=== PATIENT | female | born 1995 ===

== ENCOUNTER 2017-05-07 01:51 | Emergency (ER) | payer OTHER ==
[2017-05-07 01:58] VITALS: BP 103/56
[2017-05-07] MEDS ORDERED: IPRATROPIUM/ALBUTEROL 0.5-2.5 MG/3 ML AMPUL NEB ONE ×2 (02:06→02:11)
[2017-05-07] MEDS ORDERED: PREDNISONE 20 MG TABLET PO ONE (02:11)
--- NOTE | 2017-05-07 02:13 | ER Document Report ---
ED General - General Chief Complaint: Asthma Exacerbation Stated Complaint: DIFFICUTLY BREATHING Time Seen by Provider: 05/07/17 02:05 Notes: Patient is a pleasant 22-year-old female who presents with complaint of difficulty breathing. She does have history of asthma. She has never needed to be admitted for asthma. She does smoke. She does not drink alcohol on a regular basis. She says that she has had a cough and congestion for last several days. Tonight around 1 she started having difficulty breathing. It became much worse. She is out of her inhaler and therefore came to the ER. She says she only uses albuterol inhaler. She does not use any type of maintenance inhalers. She has no other complaints at this time. TRAVEL OUTSIDE OF THE [place] IN LAST 30 DAYS: No - Related Data Allergies/Adverse Reactions: avocado Allergy (Verified 05/07/17 01:58) banana Allergy (Verified 05/07/17 01:58) fire ant Allergy (Verified 05/07/17 01:58) Past Medical History - Social History Smoking Status: Current Every Day Smoker Frequency of alcohol use: None Drug Abuse: None Family History: Reviewed & Not Pertinent Review of Systems - Review of Systems Notes: My Normal Review Basic REVIEW OF SYSTEMS: CONSTITUTIONAL : Denies fever, chills, or sweats. Denies recent illness. EENT: Congestion CARDIOVASCULAR: Denies chest pain. RESPIRATORY: Wheezing GASTROINTESTINAL: Denies abdominal pain. Denies nausea, vomiting, or diarrhea. Denies constipation. Last BM: MUSCULOSKELETAL: Denies neck or back pain or joint pain or swelling. SKIN: Denies rash or skin lesions. NEUROLOGICAL: Denies altered mental status or loss of consciousness. Denies headache. Denies weakness or paralysis or loss of use of either side. Denies problems with gait or speech. Denies sensory or motor loss. ALL OTHER SYSTEMS REVIEWED AND NEGATIVE. Physical Exam - Vital signs Vitals: Temp Pulse Resp BP Pulse Ox 97.9 F 79 30 H 103/56 L 95 05/07/17 01:57 05/07/17 01:57 05/07/17 01:57 05/07/17 01:57 05/07/17 01:57 - Notes Notes: General Appearance: Well nourished, alert, cooperative, no acute distress, no obvious discomfort. Patient is tearful. Is not in any distress. Vitals: reviewed, See vital signs table. Head: no swelling or tenderness to the head Eyes: PERRL, EOMI, Conjuctiva clear Mouth: No decreasd moisture Throat: No tonsillar inflammation, No airway obstruction, No lymphadenopathy Neck: Supple, no neck tenderness, No thyromegaly Lungs: Diffuse wheezing with some tight lung scruggs. Fair air exchange. No tachypnea or accessory muscle use. Heart: Normal rate, Regular rythm, No murmur, no rub Extremities: strength 5/5 in all extremities, good pulses in all extremities, no swelling or tenderness in the extremities, no edema. Skin: warm, dry, appropriate color, no rash Neuro: speech clear, oriented x 3, normal affect, responds appropriately to questions. Course - Re-evaluation Re-evalutation: 05/07/17 02:13 I did start the patient informed her of what I would suggest that we do as far as treatment. We will give her breathing treatments and Solu-Medrol and magnesium. Patient at this time refuses IV. She immediately becomes very tearful starts crying and says that she hates IVs and she does not want one. I informed her we can initially try oral prednisone and some breathing treatments. I informed her that if this does not work then we will have to further consider placing an IV and give her magnesium. Patient is agreeable to this. Currently patient has tight wheezing lung scruggs but is not in any distress, speaking in full sentences, and is not showing signs of immediate decompensation. 05/07/17 04:28 I was in the room with a patient who was in refractory ventricular tachycardia for approximately 45 minutes. When I came out of the room and went to check on Mrs. Garza she was no longer in the room. I found the nurse and she said the patient left AMA. Said that the patient did not want to wait for me to finish with the other patient and left. I was not informed that the patient was leaving. I was not asked to come speak with the patient being that I was in with the critically ill patient with refractory Ventricular Tachycardia. Dictation of this chart was performed using voice recognition software; therefore, there may be some unintended grammatical errors. 05/07/17 04:33 - Vital Signs Vital signs: Temp Pulse Resp BP Pulse Ox 97.9 F 79 30 H 103/56 L 95 05/07/17 01:57 05/07/17 01:57 05/07/17 01:57 05/07/17 01:57 05/07/17 01:57 Discharge - Discharge Clinical Impression: Asthma Qualifiers: Asthma severity: unspecified severity Asthma persistence: unspecified Asthma complication type: unspecified Qualified Code(s): J45.909 - Unspecified asthma, uncomplicated Disposition: ELOPED
--- NOTE | 2017-05-07 02:45 | RADIOLOGY REPORT (SQ) ---
EXAM DESCRIPTION: CHEST SINGLE VIEW COMPLETED DATE/TIME: 05/07/2017 2:34 am REASON FOR STUDY: cough, wheezing COMPARISON: None. EXAM PARAMETERS: NUMBER OF VIEWS: One view. TECHNIQUE: Single frontal radiographic view of the chest acquired. RADIATION DOSE: NA LIMITATIONS: None. FINDINGS: LUNGS AND PLEURA: No consolidation, pneumothorax or pleural effusion. MEDIASTINUM AND HILAR STRUCTURES: No masses. Contour normal. HEART AND VASCULAR STRUCTURES: Heart normal in size. Normal vasculature. BONES: No acute findings. HARDWARE: None in the chest. IMPRESSION: No acute radiographic finding in the chest. TECHNICAL DOCUMENTATION: JOB ID: [id number] [employer]- All Rights Reserved
[2017-05-07] MEDS ORDERED: ALBUTEROL SULFATE HFA (90 MCG/PUFF) 8 GM MDI (1 MDI/ER DISP) IH ONE (03:38)
== END 2017-05-07 03:40 | disposition left against medical advice (07) ==
LOC: ER 01:51
DX: J45.909 Unspecified asthma, uncomplicated (principal); R06.00 Dyspnea, unspecified; F17.200 Nicotine dependence, unspecified, uncomplicated
CPT/HCPCS: 94640; 99281; 71045; J7512; J7620